=== PATIENT | male | born 1990 | race Two or more races ===

== ENCOUNTER → 2016-10-11 | Outpatient (CLI) | payer OTHER ==
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
== END ==
LOC: MW.CT 13:40
PROVIDERS: ATTEND General Practice
DX: S00.83XA Contusion of other part of head, initial encounter (principal); S02.2XXA Fracture of nasal bones, initial encounter for closed fracture; X58.XXXA Exposure to other specified factors, initial encounter
CPT/HCPCS: 70486; 70486-26

== ENCOUNTER 2016-10-13 06:24 | Day surgery (SDC) | payer OTHER ==
[~2016-10-13 06:24] MED LIST: Lactated Ringers 1,000 ML IV SCH
[2016-10-13] MEDS ORDERED: ceFAZolin 2 GM in Premix Bag 1 BAG IV ONE (07:00)
[2016-10-13] MEDS ORDERED: Bupivacaine 0.25%/EPINEPHrine 1:200,000 10 ML SDV INJECT ONE (07:00)
[2016-10-13] MEDS ORDERED: Acetaminophen/HYDROcodone 325-5 MG Tab PO PRN (07:00)
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
[2016-10-13] MEDS ORDERED: Ondansetron 4 MG/2 ML SDV ONE (07:29)
[2016-10-13] MEDS ORDERED: Lidocaine 2% 5 ML SDV ONE (07:29)
[2016-10-13] MEDS ORDERED: Propofol 200 MG/20 ML SDV ONE (07:30)
[2016-10-13] MEDS ORDERED: Midazolam 1 MG/ML 2 ML SDV ONE (07:30)
[2016-10-13] MEDS ORDERED: fentaNYL 250 MCG/5 ML SDV ONE (07:30)
[2016-10-13] MEDS ORDERED: Bupivacaine 0.25%/EPINEPHrine 1:200,000 10 ML SDV ONE (07:42)
[2016-10-13] MEDS ORDERED: ceFAZolin 1 GM Vial ONE (07:51)
[2016-10-13] MEDS ORDERED: Lidocaine 2% Jelly 30 ML Tube ONE (08:04)
[2016-10-13] MEDS ORDERED: Lidocaine 4% Top Soln 50 ML Bottle ONE (08:05)
[2016-10-13] MEDS ORDERED: Rocuronium 10 MG/ML 10 ML Syringe ONE (08:06)
[2016-10-13] MEDS ORDERED: Succinylcholine/Normal Saline 200 MG/10 ML Syringe ONE (08:06)
[2016-10-13] MEDS ORDERED: HYDROmorphone 2 MG/ML Syringe ONE (08:16)
[2016-10-13] MEDS ORDERED: fentaNYL 100 MCG/2 ML SDV IVPUSH PRN (08:38)
[2016-10-13] MEDS ORDERED: Dexamethasone 4 MG/ML 5 ML MDV ONE ×2 (08:39→09:07)
[2016-10-13] MEDS ORDERED: fentaNYL 100 MCG/2 ML SDV ONE (08:45)
[2016-10-13] MEDS ORDERED: Ketorolac 30 MG/ML SDV ONE (09:10)
[2016-10-13] MEDS ORDERED: Morphine 2 MG/ML Syringe IVPUSH PRN (09:41)
[2016-10-13] MEDS ORDERED: diphenhydrAMINE 50 MG/ML SDV IVPUSH PRN (09:41)
[2016-10-13] MEDS ORDERED: Ondansetron 4 MG/2 ML SDV IVPUSH PRN (09:41)
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
--- NOTE | 2016-10-13 10:07 | PCM.POSTAN ---
POST ANESTHESIA ASSESSMENT - MENTAL STATUS Mental Status: alert, oriented - RESPIRATORY Respiratory Status: respiratory rate WNL, airway patent - CARDIOVASCULAR CV Status: pulse rate WNL, blood pressure stable - GASTROINTESTINAL GI Status: no symptoms - POST OP HYDRATION Hydration Status: adequate & stable
[2016-10-13] MEDS: Lidocaine 5% Oint 35.44 GM Tube TOP PRN ×2 (12:33→21:17)
[2016-10-13] MEDS: Petrolatum,White Ointment 50 GM Tube TOP PRN ×2 (12:34→21:17)
[2016-10-13] MEDS: Acetaminophen/HYDROcodone 325-10 MG Tab PO PRN ×2 (14:39→20:22)
[2016-10-13] MEDS ORDERED: Sodium Chloride 0.9% 10 ML Syringe FLUSH PRN (16:08)
[2016-10-13] MEDS ORDERED: Sodium Chloride 0.9% 2.5 ML Syringe FLUSH PRN (16:08)
--- NOTE | 2016-10-13 18:17 | PCM48HPAN ---
Post Anesthesia Note - EVALUATION WITHIN 48HRS OF ANESTHETIC Vital Signs in Normal Range: Yes Patient Participated in Evaluation: Yes Respiratory Function Stable: Yes Airway Patent: Yes Cardiovascular Function Stable: Yes Hydration Status Stable: Yes Pain Control Satisfactory: Yes Nausea and Vomiting Control Satisfactory: Yes Mental Status Recovered: Yes
[2016-10-14] MEDS: Acetaminophen/HYDROcodone 325-10 MG Tab PO PRN ×2 (00:14→12:23)
[2016-10-14] MEDS ORDERED: Lidocaine 2% Jelly 30 ML Tube PRN (08:11)
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
[2016-10-14 12:56] VITALS: BP 142/77
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
== END 2016-10-14 13:09 | disposition home or self-care (01) ==
LOC: MW.SDS 06:24 → MW.MS 09:40 → MW.SDS 10-14 13:09
PROVIDERS: ATTEND Plastic Surgery
PROC: 0HB1XZZ Excision of Face Skin, External Approach (ICD-10-PCS; principal; 2016-10-13)
DX: T20.20XA Burn of second degree of head, face, and neck, unspecified site, initial encounter (principal); W40.9XXA Explosion of unspecified explosive materials, initial encounter
CPT/HCPCS: 16020; A9270; J0690; J1100; J1170; J1885; J2250; J2405; J3010; J7120; 00300; J2704